=== PATIENT | male | born 1985 | race Caucasian/White ===

== ENCOUNTER 2023-06-24 19:29 | Emergency (ER) | payer BC, SELFPAY ==
[2023-06-24 19:42] VITALS: BP 117/79; PULSE 96; RESP 18; TEMP 36.4; O2SAT 98
--- NOTE | 2023-06-24 20:09 | ED_ITS ---
HPI - Back Pain/Injury General Chief Complaint: Back Injury/Pain Stated Complaint: lower back spasms Time Seen by Provider: 06/24/23 19:49 History of Present Illness HPI Narrative: This 38-year-old male comes in with rather sudden onset of severe low back pain that sometimes radiates down his right leg. This began several hours prior to arrival when he was bending over. He states that he does see a chiropractor for some low back pain but has not had any symptoms like this. He does not describe any injury event or strenuous activity recently. Related Data Previous Rx's Medication Instructions Recorded methylprednisolone 4 mg tablets in See Rx Instructions PO .COMPLEX 06/24/23 a dose pack (Medrol (Gaudencio)) #21 ea Allergies Allergy/AdvReac Type Severity Reaction Status Date / Time cephalexin [From Keflex] Allergy Severe Anaphylaxis Verified 06/24/23 19:48 Review of Systems Status of ROS: Reports: 10 or more systems reviewed and unremarkable except as noted in History and below Narrative: Constitutional: No fevers, no weight gain or loss. Eyes: No discharge. No vision changes. HENT: No congestion, no sore throat, no ear pain. Cardiovascular: No chest pain, no palpitations. Respiratory: No shortness of breath, no wheezes, no cough. Gastrointestinal: No abdominal pain, no vomiting, no diarrhea. Genitourinary: No dysuria, no hematuria. Musculoskeletal: Low back pain as described above. Skin: No rashes, no pruritis. Neurological: No dizziness, weakness, sensory change, speech change. Endo/Heme/Allergies: No bruising or bleeding. No polydipsia. Pysch: no suicidality, no anxiety, no insomnia. All other systems reviewed and are negative. Exam Narrative: Exam Narrative: Constitutional: Well-developed, well-nourished, no acute distress. HEENT: Normocephalic, atraumatic. Neck: Normal range of motion. Nontender. Supple. Heart: Regular. No murmurs. Normal rate. Intact distal pulses. Lungs: Clear to auscultation. No chest discomfort. No wheezes, rhonchi, or rales. Abdomen: Normal bowel sounds. Nontender. No rebound tenderness. Genitalia: Deferred. Back: Diffuse pain in the right low back that sometimes radiates down the right leg. Straight leg raise elicits pain in his low back when lowering each leg. Extremities: Normal range of motion. No injury. Skin: Intact. No rash. Warm. No erythema or pallor. Neurologic: No altered sensation. No weakness. Alert and oriented. Psychiatric: No suicidality. No anxiety or depression. No insomnia. Nursing notes and vitals signs are reviewed. Const: Vital Signs, click to edit/add: Vital Signs - 24 hr 06/24/23 19:42 Temperature 97.5 F L Pulse Rate [Right Pulse Oximeter] 96 Respiratory Rate 18 Blood Pressure [Ri ght Upper Arm] 117/79 Pulse Oximetry 98 Oxygen Delivery Me thod Room Air Course Vital Signs Vital signs: Initial Vital Signs Temperature 97.5 F L 06/24/23 19:42 Temperature Source Temporal Artery Scan 06/24/23 19:42 Pulse Rate 96 06/24/23 19:42 Pulse Rhythm Regular 06/24/23 19:42 Respiratory Rate 18 06/24/23 19:42 Blood Pressure 117/79 06/24/23 19:42 Blood Pressure Mean 91 06/24/23 19:42 Blood Pressure Position Sitting 06/24/23 19:42 Pulse Oximetry 98 06/24/23 19:42 Oxygen Delivery Method Room Air 06/24/23 19:42 Vital Signs Temperature 97.5 F L 06/24/23 19:42 Pulse Rate 96 06/24/23 19:42 Respiratory Rate 18 06/24/23 19:42 Blood Pressure 117/79 06/24/23 19:42 Pulse Oximetry 98 06/24/23 19:42 Oxygen Delivery Method Room Air 06/24/23 19:42 Temperature 97.5 F L 06/24/23 19:42 Pulse Rate 96 06/24/23 19:42 Respiratory Rate 18 06/24/23 19:42 Blood Pressure 117/79 06/24/23 19:42 Pulse Oximetry 98 06/24/23 19:42 Oxygen Delivery Method Room Air 06/24/23 19:42 MDM - Back Pain/Injury MDM Narrative Medical decision making narrative: This patient comes in with low back pain that sometimes radiates down the right leg. There is some suspicion for lumbar radiculopathy. There was no injury event her mechanism of injury that requires imaging studies at this time. The patient did receive an intramuscular injection of morphine 10 mg. Prescriptions are provided for Toradol, Flexeril, and Medrol Dosepak. I advised him to maintain and increase activity as tolerated and to follow up with [facility]. I also described worsening signs and symptoms of indicate need for return and re-evaluation. Discharge Plan Discharge Clinical Impression: Lumbar radiculopathy Patient Disposition: Home, Self-Care Condition: Unchanged Additional Instructions: Take medications as needed and indicated. Follow up with [facility]. Make appointment by calling [phone]. Return if worsening. Prescriptions: New methylprednisolone [Medrol (Gaudencio)] 4 mg tablets,dose pack See Rx Instructions .ROUTE .COMPLEX Qty: 21 0RF Rx Instructions: orally per package directions Stand Alone Forms: [facility] Info Instructions
[2023-06-24] MEDS: MORPHINE 10 MG/ML inj IM (20:18)
== END 2023-06-24 21:11 | disposition home or self-care (01) ==
LOC: ED 20:36
PROVIDERS: Emergency Provider Emergency Medicine Emergency Medical Services
DX: M54.16 Radiculopathy, lumbar region (principal)
CPT/HCPCS: 96372; 99283; 99284; J2270